=== PATIENT | male | born 1980 | race Caucasian/White ===

== ENCOUNTER 2016-07-22 21:25 | Emergency (ER) | payer OTHER ==
[~2016-07-22] VITALS: Ht 185.4 cm; Wt 141.5 kg
[~2016-07-22 21:25] MED LIST: ALBUTEROL0.09 MG/A1; ALLOPURINOL300 MG PO; BACTRIM DS; GABAPENTIN800 MG PO; INDOCIN25 MG PO; PRILOSEC10 MG; PROVENTIL; PROVENTIL0.09 MG/A1 IH
[2016-07-22 22:00] VITALS: BP 140/76
--- NOTE | 2016-07-22 22:24 | NUR ---
PATIENT PRESENTS TO ED WITH C/O OF RIGHT MIDDLE FINGER GOUT PAIN X 1 DAYS RADIATING TO THE RIGHT HAND. . PT STATES HE TAKES ALLOPURINOL AND COLCHICINE FOR GOUT BUT NOT EFFECTIVE. PT DENIES N/V/D; SKIN IS PINK/WARM/DRY; AAOX4 WITH EVEN AND STEADY GAIT; LUNGS CLEAR BL; HR EVEN AND REGULAR; PT DENIES ANY FEVER, CP, SOB, OR COUGH AT THIS TIME; PATIENT STATES PAIN OF 9/10 AT THIS TIME; VSS; PATIENT POSITIONED FOR COMFORT; HOB ELEVATED; BEDRAILS UP X2; BED DOWN. ER MD MADE AWARE OF PT STATUS.
--- NOTE | 2016-07-22 22:24 | NUR ---
PATIENT AMBULATED TO OF2.
--- NOTE | 2016-07-22 22:29 | NUR ---
Patient being evaluated by physician.
[2016-07-22] MEDS ORDERED: HYDROcodone/APAP 5/325 MG 1 TAB TAB PO ONE (22:35)
[2016-07-22 23:44] VITALS: BP 137/82
--- NOTE | 2016-07-22 23:44 | NUR ---
Patient discharged with v/s stable. Written and verbal after care instructions given and explained. Patient alert, oriented and verbalized understanding of instructions. Ambulatory with steady gait. All questions addressed prior to discharge. ID band removed. Patient advised to follow up with PMD. Rx of INDOCIN 50MG given. Patient educated on indication of medication including possible reaction and side effects. Opportunity to ask questions provided and answered.
== END 2016-07-22 23:44 | disposition home or self-care (01) ==
LOC: MED 21:25
DX: M10.9 Gout, unspecified (principal); J45.909 Unspecified asthma, uncomplicated; K21.9 Gastro-esophageal reflux disease without esophagitis

== ENCOUNTER 2017-12-08 17:59 | Emergency (ER) | payer SELFPAY ==
[~2017-12-08] VITALS: Ht 182.9 cm; Wt 125.7 kg
[~2017-12-08 17:59] MED LIST changes: +ALBU0.0952 IH; -ALBUTEROL0.09 MG/A1; +ALLO300T28 PO; -ALLOPURINOL300 MG PO; -BACTRIM DS; +GABA800T3 PO; -GABAPENTIN800 MG PO; +IND25 PO; -INDOCIN25 MG PO; -PRILOSEC10 MG; -PROVENTIL; -PROVENTIL0.09 MG/A1 IH
[2017-12-08 18:14] VITALS: BP 137/93
--- NOTE | 2017-12-08 18:30 | NUR ---
3.7 y.o male, AOx4, complient, cooperative with c/o of right ankle pain and dizziness. Pt states that today while driving the pt stated that the pain started in his foot (with a lump present) and radiated up his right leg on both medial and lateral side. Pt states that he is also very dizzy which started today as well; he has noticed that sitting to long leads to the dizziness getting worse. Pt has decreased ROM in his right ankle. Pt denies all other complaints. He does have hx of goat, Sciatica in left leg. On the pts right foot, superior portion, a soft lump with pain is present. Pts lungs are clear bilaterally. s1s2 present.
--- NOTE | 2017-12-08 18:32 | NUR ---
AMBULATORY WITH STEADY GAIT TO [facility]
[2017-12-08] MEDS ORDERED: NACL 0.9% 1,000 ML IV ONE (18:55)
--- NOTE | 2017-12-08 19:17 | NUR ---
gave report to Simona CHOI for continuation of care
[2017-12-08 19:28] LABS: BASOPHILS % (AUTO) 0.3 % (0.0-2.0); EOSINOPHILS # (AUTO) 0.2 K/uL (0-0.4); EOSINOPHILS % (AUTO) 1.7 % (0.0-4.0); HEMATOCRIT 44.5 % (36-52); HEMOGLOBIN 14.7 g/dL (12.0-18.0); LYMPHOCYTES # (AUTO) 2.6 K/uL (2.0-11.5); LYMPHOCYTES % (AUTO) 29.2 % (20.5-51.1); MEAN CORPUSCULAR HEMOGLOBIN 30 pg (27-31); MEAN CORPUSCULAR HGB CONC 33 g/dL (33-37); MEAN CORPUSCULAR VOLUME 90.4 fL (80-94); MONOCYTES # (AUTO) 0.7 K/uL (0.8-1.0); MONOCYTES % (AUTO) 7.8 % (1.7-9.3); NEUTROPHILS # (AUTO) 5.4 K/uL (1.8-7.7); PLATELET COUNT (AUTO) 254 K/uL (140-450); RED BLOOD CELL COUNT(AUTO) 4.93 MIL/uL (4.20-6.10); RED CELL DISTRIBUTION WIDTH 13.3 % (11.6-13.7); WHITE BLOOD COUNT (AUTO) 8.8 K/uL (4.8-10.8)
--- NOTE | 2017-12-08 20:00 | NUR ---
Patient appears to be resting comfortably in bed.Respirations even and unlabored.
[2017-12-08 20:01] LABS: ALBUMIN 4.1 g/dL (3.4-5.0); ANION GAP 9.9 (8-16); CARBON DIOXIDE 31.8 mmol/L (21-32); POTASSIUM 3.7 mmol/L (3.5-5.1); TOTAL BILIRUBIN 0.4 mg/dL (0.0-1.0)
[2017-12-08] MEDS ORDERED: KETOROLAC 30 MG/ML VIAL IVP ONE (20:10)
[2017-12-08 21:02] VITALS: BP 111/63
== END 2017-12-08 21:00 | disposition home or self-care (01) ==
LOC: MED 17:59
DX: S93.401A Sprain of unspecified ligament of right ankle, initial encounter (principal); J45.909 Unspecified asthma, uncomplicated; Z79.899 Other long term (current) drug therapy; X58.XXXA Exposure to other specified factors, initial encounter; Y93.89 Activity, other specified; Y92.89 Other specified places as the place of occurrence of the external cause; Y99.8 Other external cause status
CPT/HCPCS: 36415; 73610; 80053; 82948; 85025; 93971; 96374; 99285; J1885; Q0092; J7030

== ENCOUNTER 2019-01-01 21:56 | Emergency (ER) | payer MEDICAID ==
[~2019-01-01] VITALS: Ht 185.4 cm; Wt 122.2 kg
[~2019-01-01 21:56] MED LIST changes: -GABA800T3 PO; +GABA800T6 PO; -IND25 PO; +[UNRECOGNIZED DRUG - CODE] PO
[2019-01-01 22:23] VITALS: BP 135/98
--- NOTE | 2019-01-01 22:34 | NUR ---
PT AMBULATES TO LOBBY WITH STEADY GAIT. AWAITING AVAILABLE BED.
--- NOTE | 2019-01-01 22:50 | NUR ---
PT CALLED. NO RESPONSE
--- NOTE | 2019-01-01 23:00 | NUR ---
PT CALLED. NO RESPONSE
--- NOTE | 2019-01-01 23:15 | NUR ---
PT CALLED. NO RESPONSE. PT LWBS AT 2250.
== END 2019-01-01 22:50 | disposition left against medical advice (07) ==
LOC: MED 21:56
DX: R42 Dizziness and giddiness (principal); Z53.21 Procedure and treatment not carried out due to patient leaving prior to being seen by health care provider

== ENCOUNTER 2020-07-05 21:04 | Emergency (ER) | payer MEDICAID ==
[~2020-07-05] VITALS: Ht 185.4 cm; Wt 130.8 kg
[~2020-07-05 21:04] MED LIST changes: +INDO-323 PO; -[UNRECOGNIZED DRUG - CODE] PO
[2020-07-05 21:09] VITALS: BP 136/78
--- NOTE | 2020-07-05 21:09 | NUR ---
TO BED AMBULATORY
--- NOTE | 2020-07-05 21:10 | NUR ---
40 Y/O MALE CAME TO THE ED WITH LEFT FOOT PAIN. PT STATES NUMBNESS AND TINGLINGTO THE LLEX 1 WEEK. ASYMMETRICAL FOOT STRENGTH(RIGHT IS STRONGER THAN LEFT). PT STATES THAT LEFT FOOT FEELS "SWOLLEN". PULSES +2 ON BOTH FOOT. CAP REFILL IS <2 SECONDS FOR BOTH. PT IS HAVING A HARD TIME MOVING PINKY. PT IS A&OX4, GCS 15. PMH: PRE-DM, ASTHMA NKA
[2020-07-05] MEDS ORDERED: KETOROLAC 30 MG/ML VIAL IM ONE (22:40)
--- NOTE | 2020-07-05 22:41 | NUR ---
XRAY ON BEDSIDE
--- NOTE | 2020-07-05 22:55 | NUR ---
ULTRASOUND AT BEDSIDE
[2020-07-05] MEDS: diazePAM 5 MG TAB PO ONE ×2 (22:56→22:57)
--- NOTE | 2020-07-05 23:04 | NUR ---
ERMD MADE AWARE OF PT REFUSAL OF MEDICATION: VALIUM; NO ORDERS RECEIVED
[2020-07-05] MEDS ORDERED: ACET-8386 PO (23:50)
--- NOTE | 2020-07-06 00:03 | NUR ---
Patient discharged with v/s stable. Written and verbal after care instructions given and explained. Patient alert, oriented and verbalized understanding of instructions. Ambulatory with steady gait. All questions addressed prior to discharge. ID band removed. Patient advised to follow up with PMD. Rx of HYDROCODONE-ACETAMINOPHEN given. Patient educated on indication of medication including possible reaction and side effects. Opportunity to ask questions provided and answered.
[2020-07-06 00:05] VITALS: BP 120/83
== END 2020-07-06 00:03 | disposition home or self-care (01) ==
LOC: MED 21:04
DX: G90.09 Other idiopathic peripheral autonomic neuropathy (principal); M54.42 Lumbago with sciatica, left side; J45.909 Unspecified asthma, uncomplicated; I10 Essential (primary) hypertension; Z79.899 Other long term (current) drug therapy
CPT/HCPCS: 73590; 93970; 96372; 99284; J1885

== ENCOUNTER 2020-07-29 09:20 | Emergency (ER) | payer MEDICAID ==
[~2020-07-29] VITALS: Ht 185.4 cm; Wt 131.5 kg
[~2020-07-29 09:20] MED LIST changes: +ACET-8386 PO
[2020-07-29 09:37] VITALS: BP 156/97
--- NOTE | 2020-07-29 09:38 | NUR ---
Patient ambulated to bed 10B with family. RN evaluating the patient at bedside.
--- NOTE | 2020-07-29 09:40 | NUR ---
40 Y/O MALE C/O SORE THROAT, DIZZINESS, SOB X 1 DAY. PT STATES +N/-V, DENIES FEVER/CHILLS. ABDOMEN IS SOFT, ROUND, NON-TENDER TO PALPATION, BOWEL SOUNDS ACTIVE X4. PT DENIES SYNCOPE. DENIES HAVING A COVID VACCINE. PMH: DM, HTN, ASTHMA NKA
--- NOTE | 2020-07-29 10:07 | NUR ---
Dr. Swift is evaluating the patient at bedside.
--- NOTE | 2020-07-29 10:17 | NUR ---
Collected COVID NOVEL swab, walked to lab.
[2020-07-29] MEDS ORDERED: PRED20TA5 PO ×2 (10:26→11:19)
[2020-07-29] MEDS ORDERED: ALBU0.0912 IH ×2 (10:26→11:19)
[2020-07-29 10:46] VITALS: BP 156/97
--- NOTE | 2020-07-29 10:46 | NUR ---
Patient discharged with v/s stable. Written and verbal after care instructions given and explained. Patient alert, oriented and verbalized understanding of instructions. Ambulatory with steady gait. All questions addressed prior to discharge. ID band removed. Patient advised to follow up with PMD. Rx of PREDNISONE 20MG PO DAILY, AND ALBUTEROL INH Q4-6H PRN SOB given. Patient educated on indication of medication including possible reaction and side effects. Opportunity to ask questions provided and answered.
== END 2020-07-29 10:46 | disposition home or self-care (01) ==
LOC: MED 09:20
DX: B34.9 Viral infection, unspecified (principal); Z20.822 Contact with and (suspected) exposure to COVID-19; J45.909 Unspecified asthma, uncomplicated; E11.9 Type 2 diabetes mellitus without complications; I10 Essential (primary) hypertension; Z90.49 Acquired absence of other specified parts of digestive tract; Z79.899 Other long term (current) drug therapy
CPT/HCPCS: 99283; U0003

== ENCOUNTER 2022-05-10 08:31 | Emergency (ER) | payer MEDICAID ==
[~2022-05-10] VITALS: Ht 198.1 cm; Wt 139.3 kg
[~2022-05-10 08:31] MED LIST changes: -ACET-8386 PO; +ACET-8905 PO; +ALBU0.0912 IH; +PRED20TA5 PO
[2022-05-10 08:38] VITALS: BP 139/95
--- NOTE | 2022-05-10 08:50 | NUR ---
C/O 12/04 LEFT ANKLE PAIN, SWELLING X 2 DAYS. DENIES TRAUMA. PMH: GOUT, ASTHMA, HLD, PRE DM
[2022-05-10] MEDS ORDERED: IBUP-2218 PO ×2 (12:08→12:42)
[2022-05-10] MEDS ORDERED: COLC-30 PO (12:08)
[2022-05-10] MEDS ORDERED: PRED20TA5 PO ×2 (12:08→12:42)
[2022-05-10] MEDS ORDERED: KETOROLAC 15 MG/ML VIAL IM ONE (12:10)
[2022-05-10] MEDS ORDERED: predniSONE 20 MG TAB PO ONE (12:10)
[2022-05-10] MEDS ORDERED: COLCHICINE 0.6 MG TAB PO ONE (12:10)
--- NOTE | 2022-05-10 12:50 | NUR ---
PT PROVIDED WITH CRUTCHES. RETURNED SAFE DEMONSTRATION.
[2022-05-10 12:52] VITALS: BP 140/104
--- NOTE | 2022-05-10 12:52 | NUR ---
Patient discharged with v/s stable. Written and verbal after care instructions ABOUT LOW-PURINE EATING PLAN, AND WHAT YOU NEED TO KNOW ABOUT OSTEOARTHRITIS given and explained. Patient alert, oriented and verbalized understanding of instructions. Ambulatory with steady gait. All questions addressed prior to discharge. ID band removed. Patient advised to follow up with PMD. Rx of COLCHICINE, IBUPROFEN, AND PREDNISONE given. Patient educated on indication of medication including possible reaction and side effects. Opportunity to ask questions provided and answered. Addendum: 05/10/22 at 1307 by [email or web address] OKAY TO D/C WITH CURRENT BP PER DR CUNNINGHAM Addendum: 05/10/22 at 1312 by [email or web address] AMBULATORY WITH CRUTCHES*
== END 2022-05-10 12:52 | disposition home or self-care (01) ==
LOC: MED 08:31
DX: M25.572 Pain in left ankle and joints of left foot (principal); J45.909 Unspecified asthma, uncomplicated; I10 Essential (primary) hypertension; Z79.899 Other long term (current) drug therapy
CPT/HCPCS: 73610; 96372; 99283; J1885; J7512